=== PATIENT | female | born 1965 | race Caucasian/White ===

== ENCOUNTER 2017-06-13 13:53 | Emergency (ER) | payer SELFPAY ==
[2017-06-13] MEDS ORDERED: Diazepam 5 MG TAB ONE (15:10)
[2017-06-13] MEDS ORDERED: Morphine 4 MG/ML VIAL ONE (15:10)
[2017-06-13] MEDS ORDERED: Dexamethasone 10 MG/ML VIAL ONE (15:10)
[2017-06-13] MEDS ORDERED: Dexamethasone 4 mg/ml Vial ONE (15:11)
[2017-06-13] MEDS ORDERED: Dexamethasone 4 MG TAB ONE (15:12)
--- NOTE | 2017-06-13 16:08 | CT ---
LUMBAR SPINE CT WITHOUT CONTRAST: DATE: 06/13/17. HISTORY: Bowel and bladder incontinence for 3 days, pain. TECHNIQUE: Serial axial CT imaging at 2.5 mm intervals from the lower thoracic spine through the tip of the sacr um without contrast. Coronal and sagittal reformatted imaging obtained. FINDINGS: Evaluation of the nonosseous structures is limited without contrast media. There is a small nodule associated with the adrenal gland on the left measuring in the 9-10 mm range, estimated Hounsfield units of approximately negative 15-20, suggesting adrenal adenoma. There is atherosclerotic calcification of the abdominal aorta. Lumbar vertebral body height and alignment appears within normal limits. T12-L1: There is no osseous cause of significant central canal or neural foraminal stenosis. L1-2: There is disk space narrowing with mild anterior osteophyte formation. There is no osseous ca use of significant central canal or neural foraminal stenosis. L2-3: No osseous cause of significant central canal or neural foraminal stenosis. L3-4: Intervertebral disk height appears normal. No osseous cause of significant central canal or n eural foraminal stenosis. L4-5: Mild bilateral facet hypertrophy and hypertrophy of the ligamentum flavum. No osseous cause o f significant central canal or neural foraminal stenosis. L5-S1: There is bilateral facet hypertrophy, right greater than left. There is associated mild neur al foraminal stenosis on the right on the basis of facet osteophyte encroachment. No osseous ause of significant central canal or left neural foraminal stenosis. No worrisome lytic or blastic bone les ion. No acute osseous abnormality. IMPRESSION: Lumbar spine degenerative change with no fracture/dislocation. No osseous cause of significant centr al canal or neural foraminal stenosis. If symptoms persist, MRI suggested. POS: [facility]
[2017-06-13 16:17] LABS: Anion Gap 16 mmol/L (10-20); BUN (Urea Nitrogen) 16 mg/dL (9.8-20.1); Calc. Creatinine Clearance 0 mL/min (70-130); Calcium 9.7 mg/dL (7.8-10.44); Carbon Dioxide 25 mmol/L (22-29); Chloride 103 mmol/L (98-107); Estimated GFR-MDRD 82; Glucose 75 mg/dL (70-105); Potassium 4.3 mmol/L (3.5-5.1); Sodium 140 mmol/L (136-145)
[2017-06-13] MEDS ORDERED: Ketorolac Tromethamine 60 MG/2 ML VIAL ONE (16:26)
[2017-06-13] MEDS ORDERED: HYDROcodone/Acetaminophen 10/325 mg Tablet ONE (16:26)
== END 2017-06-13 17:09 | disposition home or self-care (01) ==
LOC: MADERS 13:53
DX: M54.5 Low back pain (principal); E03.9 Hypothyroidism, unspecified; I10 Essential (primary) hypertension; F41.9 Anxiety disorder, unspecified; F17.210 Nicotine dependence, cigarettes, uncomplicated; Z79.84 Long term (current) use of oral hypoglycemic drugs; Z79.899 Other long term (current) drug therapy
CPT/HCPCS: 36415; 72131; 72132; 80048; 96372; J1100; J1885; J2270; J8540

== ENCOUNTER 2020-09-14 14:21 | Outpatient (CLI) | payer MEDICARE ==
[~2020-09-14 14:21] MED LIST: Iopamidol 370 76% 100 ML VIAL ONE
--- NOTE | 2020-09-14 16:08 | CT ---
CT neck soft tissues with contrast: 09/14/2020 HISTORY: 55-year-old female "thyroid enlargement, goiter" COMPARISON: None FINDINGS: The lower poles of the right and left lobes of the thyroid gland are enlarged, right greater than lef t, and these encroach upon the mid poles. The upper poles are spared. The enlarged portions have heterogeneous, patchy attenuation/enhancement. A punctate tiny calcification is present at the anteri or portion of the left midpole. If this is moderately enlarged. Right mid and lower pole nodular mass is approximately 3.5 x 3 x 2.5 cm. The left mid and lower pole nodular mass is approximately 2 x 2 0.5 x 2.5 cm. No evidence of invasion of thyroid tumor into adjacent structures, although there is mild lateral dis placement of the bilateral common carotid arteries and internal jugular veins by these large thyroid nodules. No cervical lymphadenopathy. No definitive major pathology identified involving submandibular, parotid, parapharyngeal, retrophary ngeal, carotid, tax analyst, or posterior cervical, spaces. Unremarkable larynx. Nonspecific partial opacification of the vallecula and left lateral aspect of oral pharyngeal cavity. IMPRESSION: Bilateral moderately large thyroid nodules occupying the lower and mid poles, right larger than left.
== END 2020-09-14 14:22 | disposition home or self-care (01) ==
LOC: MADRAD 14:21
PROVIDERS: ATTEND Student in an Organized Health Care Education/Training Program
DX: E04.9 Nontoxic goiter, unspecified (principal); E04.2 Nontoxic multinodular goiter
CPT/HCPCS: 70491; Q9967

== ENCOUNTER 2021-01-17 10:44 | Outpatient (CLI) | payer MEDICARE ==
[2021-01-17 11:12] LABS: ALT (SGPT) 26 U/L (8-55); AST (SGOT) 25 U/L (5-34); Albumin 4.4 g/dL (3.5-5.0); Alkaline Phosphatase 87 U/L (40-110); Anion Gap 18 mmol/L (10-20); BUN (Urea Nitrogen) 36 mg/dL (9.8-20.1); Bilirubin, Total 0.5 mg/dL (0.2-1.2); Calc. Creatinine Clearance 0 mL/min (70-130); Calcium 10.1 mg/dL (7.8-10.44); Carbon Dioxide 22 mmol/L (22-29); Cardiac Risk 3.7 (Less than 4.5); Chloride 107 mmol/L (98-107); Cholesterol 294 mg/dl (< 200 Desired); Globulin 3.2 g/dL (2.4-3.5); Glucose 93 mg/dL (70-105); HDL Cholesterol 80 mg/dL (>60 Neg Risk); LDL Cholesterol, Calculated 194 mg/dL; Potassium 4.5 mmol/L (3.5-5.1); Protein, Total 7.6 g/dL (6.0-8.3); Sodium 142 mmol/L (136-145); Triglycerides 101 mg/dL (Less than 150)
== END 2021-01-17 10:45 | disposition home or self-care (01) ==
LOC: MADLAB 10:44
PROVIDERS: ATTEND Internal Medicine Endocrinology, Diabetes & Metabolism
DX: E03.9 Hypothyroidism, unspecified (principal); E78.5 Hyperlipidemia, unspecified
CPT/HCPCS: 36415; 80053; 80061; 84439; 84443

== ENCOUNTER 2021-02-15 19:08 | Emergency (ER) | payer MEDICARE ==
[~2021-02-15 19:08] MED LIST changes: -Iopamidol 370 76% 100 ML VIAL ONE; +Sodium Chloride 0.9% 1,000 ML BAG ONE
[2021-02-15 20:52] LABS: Bilirubin Negative (Negative); Blood, Urine Negative (Negative); Clarity Clear (Clear); Glucose, Urine (Dipstick) Negative (Negative); Ketone, Urine Negative (Negative); Leukocyte Negative (Negative); Nitrite Negative (Negative); Protein, Urine (Dipstick) Negative (Neg-Trace); Urobilinogen 0.2 mg/dL (Less than 2); pH, Urine 5.5 (5.0-9.0)
[2021-02-15 21:08] LABS: ALT (SGPT) 16 U/L (8-55); AST (SGOT) 16 U/L (5-34); Albumin 4.1 g/dL (3.5-5.0); Alkaline Phosphatase 75 U/L (40-110); Anion Gap 13 mmol/L (10-20); BUN (Urea Nitrogen) 38 mg/dL (9.8-20.1); Bilirubin, Total 0.7 mg/dL (0.2-1.2); Calc. Creatinine Clearance 0 mL/min (70-130); Calcium 9.9 mg/dL (7.8-10.44); Carbon Dioxide 27 mmol/L (22-29); Chloride 101 mmol/L (98-107); Globulin 3.1 g/dL (2.4-3.5); Glucose 102 mg/dL (70-105); Lipase 4 U/L (8-78); Potassium 3.8 mmol/L (3.5-5.1); Protein, Total 7.2 g/dL (6.0-8.3); Sodium 137 mmol/L (136-145)
[2021-02-15 21:20] LABS: Hemoglobin 11.5 g/dL (12.0-16.0); Mean Corpuscular HGB CONC 31.3 g/dL (32.0-36.0); Mean Corpuscular Hemoglobin 31.6 pg (27.0-31.0); Mean Corpuscular Volume 100.9 fL (78.0-98.0); Platelet Count 355 thou/uL (130-400); RBC Distribution Width 12.6 % (11.5-14.5); Red Blood Cell (RBC) Count 3.65 mill/uL (4.20-5.40); White Blood Cell (WBC) Count 20.5 thou/uL (4.8-10.8)
[2021-02-15 21:28] LABS: Lymphocytes 21 % (21-51); Neutrophil 72 % (42-75)
[2021-02-15 21:29] LABS: MDiff Complete? YES; Monocytes 17 % (0-10); Platelet Morphology Comment Appears Adequate; RBC Morphology Normal
[2021-02-15] MEDS ORDERED: Morphine 4 MG/ML VIAL ONE (23:07)
[2021-02-15] MEDS ORDERED: Morphine 2 MG/ML VIAL ONE (23:08)
[2021-02-16 00:52] LABS: SARS-CoV-2 NAA Rapid Test Not Detected (NotDetected)
[2021-02-16] MEDS ORDERED: Cyclobenzaprine 10 MG TAB ONE (01:42)
[2021-02-16] MEDS ORDERED: Sodium Chloride 0.9% 100 ML ONE (01:48)
[2021-02-16] MEDS ORDERED: cefTRIAXone\\ROCEPHIN 2 GM VIAL ONE (01:48)
[2021-02-16] MEDS ORDERED: Azithromycin 500 MG VIAL ONE (01:48)
[2021-02-16] MEDS ORDERED: Sodium Chloride 0.9% 250 ML 250 ML ONE (01:51)
[2021-02-16] MEDS ORDERED: Azithromycin 250 MG TAB ONE (08:34)
[2021-02-16] MEDS ORDERED: Ibuprofen 600 MG TAB ONE (08:39)
== END 2021-02-16 08:55 | disposition home or self-care (01) ==
LOC: MADERS 19:08
DX: J18.9 Pneumonia, unspecified organism (principal); E03.9 Hypothyroidism, unspecified; I10 Essential (primary) hypertension; F17.210 Nicotine dependence, cigarettes, uncomplicated; Z20.822 Contact with and (suspected) exposure to COVID-19
CPT/HCPCS: 0240U; 36415; 71045; 80053; 81003; 83605; 83690; 85025; 87040; 87086; 96365; 96367; 96375; J0456; J0696; J2270; J3490; J7050

== ENCOUNTER 2021-05-18 11:04 | Emergency (ER) | payer MEDICARE | END 2021-05-18 12:20 | disposition home or self-care (01) | LOC: MADERS 11:04 | DX: J06.9 Acute upper respiratory infection, unspecified (principal); E03.9 Hypothyroidism, unspecified; I10 Essential (primary) hypertension; Z79.899 Other long term (current) drug therapy; Z79.891 Long term (current) use of opiate analgesic | CPT/HCPCS: 71046; J7620 ==

== ENCOUNTER 2021-06-08 08:55 | Outpatient (CLI) | payer MEDICARE ==
[2021-06-08 09:38] LABS: Bilirubin Negative (Negative); Blood, Urine Negative (Negative); Clarity Clear (Clear); Glucose, Urine (Dipstick) Negative (Negative); Ketone, Urine Negative (Negative); Leukocyte Negative (Negative); Nitrite Negative (Negative); Protein, Urine (Dipstick) Negative (Neg-Trace); Specific Gravity, Urine 1.015 (1.005-1.030); Urobilinogen 0.2 mg/dL (Less than 2); pH, Urine 5.5 (5.0-9.0)
[2021-06-08 09:54] LABS: Albumin 4.2 g/dL (3.5-5.0); Anion Gap 15 mmol/L (10-20); BUN (Urea Nitrogen) 35 mg/dL (9.8-20.1); Calc. Creatinine Clearance 0 mL/min (70-130); Calcium 9.6 mg/dL (7.8-10.44); Carbon Dioxide 25 mmol/L (22-29); Chloride 100 mmol/L (98-107); Glucose 101 mg/dL (70-105); Magnesium 1.2 mg/dL (1.6-2.6); Phosphorus 3.4 mg/dL (2.3-4.7); Potassium 3.8 mmol/L (3.5-5.1); Sodium 136 mmol/L (136-145); Uric Acid 8.5 mg/dL (2.6-6.0)
[2021-06-08 18:18] LABS: Creatinine, Urine 54.33 mg/dL (47-110); Microalbumin Urine Less than 1.0 mg/dL (0.5-50.0); Protein, Urine Random Quant Less than 10 mg/dL (1-14)
[2021-06-10 16:02] LABS: ANA Symphony (Qualitative) Negative (Negative); ANA Symphony (Quantitative) 0.2 Ratio (< 0.7 Negative); dsDNA IgG Antibody 0.6 IU/mL (<10 Negative)
== END 2021-06-08 08:56 | disposition home or self-care (01) ==
LOC: MADULT 08:55
PROVIDERS: ATTEND Internal Medicine Nephrology
DX: I12.9 Hypertensive chronic kidney disease with stage 1 through stage 4 chronic kidney disease, or unspecified chronic kidney disease (principal); N18.30 Chronic kidney disease, stage 3 unspecified
CPT/HCPCS: 36415; 76770; 80048; 81003; 82040; 82043; 82306; 83735; 83970; 84100; 84156; 84550; 86038; 86225

== ENCOUNTER 2022-01-24 13:36 | Emergency (ER) | payer MEDICARE ==
[2022-01-24 15:45] LABS: #Eosinphils 0.1 thou/uL (0.0-0.7); #Lymphocytes 2.1 thou/uL (1.20-3.40); #Monocytes 0.4 thou/uL (0.11-0.59); #Neutrophils 2.2 thou/uL (1.40-6.50); %Basophils 0.8 % (0.0-1.0); %Eosinophils 1.5 % (0.0-10.0); %Lymphocytes 43.9 % (21.0-51.0); %Neutrophils 45.7 % (42.0-75.0); Hemoglobin 12.4 g/dL (12.0-16.0); Mean Corpuscular HGB CONC 31.1 g/dL (32.0-36.0); Mean Corpuscular Hemoglobin 29.2 pg (27.0-31.0); Mean Corpuscular Volume 94.1 fL (78.0-98.0); Platelet Count 283 thou/uL (130-400); RBC Distribution Width 12.3 % (11.5-14.5); Red Blood Cell (RBC) Count 4.23 mill/uL (4.20-5.40); White Blood Cell (WBC) Count 4.9 thou/uL (4.8-10.8)
[2022-01-24 16:02] LABS: ALT (SGPT) 20 U/L (8-55); AST (SGOT) 23 U/L (5-34); Albumin 4.3 g/dL (3.5-5.0); Alkaline Phosphatase 66 U/L (40-110); Anion Gap 19 mmol/L (10-20); BUN (Urea Nitrogen) 36 mg/dL (9.8-20.1); Bilirubin, Total 0.2 mg/dL (0.2-1.2); Calc. Creatinine Clearance 0 mL/min (70-130); Calcium 9.7 mg/dL (7.8-10.44); Carbon Dioxide 25 mmol/L (22-29); Chloride 101 mmol/L (98-107); Estimated GFR 34; Globulin 3.2 g/dL (2.4-3.5); Glucose 81 mg/dL (70-105); Potassium 4.6 mmol/L (3.5-5.1); Protein, Total 7.5 g/dL (6.0-8.3); Sodium 140 mmol/L (136-145)
== END 2022-01-24 16:15 | disposition home or self-care (01) ==
LOC: MADERS 13:36
DX: J20.9 Acute bronchitis, unspecified (principal); I12.9 Hypertensive chronic kidney disease with stage 1 through stage 4 chronic kidney disease, or unspecified chronic kidney disease; N18.9 Chronic kidney disease, unspecified; E03.9 Hypothyroidism, unspecified; F17.210 Nicotine dependence, cigarettes, uncomplicated
CPT/HCPCS: 71045; 80053; 84484; 85025; 93005; 94760

== ENCOUNTER 2022-10-20 10:40 | Emergency (ER) | payer MEDICARE, OTHER | END 2022-10-20 12:18 | disposition home or self-care (01) | LOC: MADERS 10:40 | DX: S22.31XA Fracture of one rib, right side, initial encounter for closed fracture (principal); E03.9 Hypothyroidism, unspecified; I10 Essential (primary) hypertension; F17.290 Nicotine dependence, other tobacco product, uncomplicated; W19.XXXA Unspecified fall, initial encounter ==

== ENCOUNTER 2023-03-10 03:38 | Emergency (ER) | payer MEDICARE ==
[2023-03-10] MEDS ORDERED: Ondansetron PF 4 MG/2 ML Vial ONE (04:02)
[2023-03-10] MEDS ORDERED: Sodium Chloride 0.9% 1,000 ML ONE ×2 (04:02→07:38)
[2023-03-10] MEDS ORDERED: Morphine 4 MG/ML VIAL ONE ×2 (04:02→05:15)
[2023-03-10 04:16] LABS: #Basophils 0.1 thou/uL (0.0-0.2); #Eosinphils 0.1 thou/uL (0.0-0.7); #Lymphocytes 1.3 thou/uL (1.20-3.40); #Monocytes 0.5 thou/uL (0.11-0.59); #Neutrophils 9.2 thou/uL (1.40-6.50); %Basophils 0.7 % (0.0-1.0); %Eosinophils 1.2 % (0.0-10.0); %Lymphocytes 11.8 % (21.0-51.0); %Monocytes 4.2 % (0.0-10.0); %Neutrophils 82.1 % (42.0-75.0); Hemoglobin 14.1 g/dL (12.0-16.0); Mean Corpuscular HGB CONC 32.8 g/dL (32.0-36.0); Mean Corpuscular Hemoglobin 31.5 pg (27.0-31.0); Mean Platelet Volume 8.6 fL (7.4-10.4); Platelet Count 402 10x3/uL (130-400); Red Blood Cell (RBC) Count 4.48 mill/uL (4.20-5.40); White Blood Cell (WBC) Count 11.2 10x3/uL (4.8-10.8)
[2023-03-10 04:30] LABS: Bilirubin Negative (Negative); Blood, Urine Negative (Negative); Glucose, Urine (Dipstick) Negative (Negative); Ketone, Urine Negative (Negative); Leukocyte Small (Negative); Nitrite Negative (Negative); Protein, Urine (Dipstick) Negative (Neg-Trace); Specific Gravity, Urine 1.025 (1.005-1.030); Urobilinogen 0.2 mg/dL (Less than 2)
[2023-03-10 04:33] LABS: Bacteria/HPF 1+ HPF (None Seen); CAUTI Indications for Culture Pelvic or flank pain; Clarity Hazy (Clear); RBC/HPF 0-3 HPF (0-3); Squamous Epithelial 21-50 HPF (0-3)
[2023-03-10 04:34] LABS: Urine Culture Reflex No No
[2023-03-10 04:37] LABS: ALT (SGPT) 11 U/L (8-55); AST (SGOT) 15 U/L (5-34); Albumin 4.3 g/dL (3.5-5.0); Alkaline Phosphatase 64 U/L (40-110); Anion Gap 15 mmol/L (10-20); BUN (Urea Nitrogen) 28 mg/dL (9.8-20.1); Bilirubin, Total 0.4 mg/dL (0.2-1.2); Calc. Creatinine Clearance 0 mL/min (70-130); Calcium 9.4 mg/dL (7.8-10.44); Carbon Dioxide 22 mmol/L (22-29); Chloride 107 mmol/L (98-107); Estimated GFR 70; Globulin 3.3 g/dL (2.4-3.5); Glucose 115 mg/dL (70-105); Lipase 10 U/L (8-78); Potassium 4.3 mmol/L (3.5-5.1); Protein, Total 7.6 g/dL (6.0-8.3); Sodium 140 mmol/L (136-145)
[2023-03-10] MEDS ORDERED: Iopamidol 370 76% 100 ML VIAL ONE (10:57)
== END 2023-03-10 08:40 | disposition short-term general hospital (02) ==
LOC: MADERS 03:38
DX: K56.609 Unspecified intestinal obstruction, unspecified as to partial versus complete obstruction (principal); E03.9 Hypothyroidism, unspecified; I12.9 Hypertensive chronic kidney disease with stage 1 through stage 4 chronic kidney disease, or unspecified chronic kidney disease; N18.9 Chronic kidney disease, unspecified; Z79.899 Other long term (current) drug therapy; Z87.891 Personal history of nicotine dependence
CPT/HCPCS: 36415; 74177; 80053; 81001; 83690; 85025; 93005; 96361; 96374; 96375; 96376; J2270; J2405; J7050; Q9967

== ENCOUNTER 2024-06-08 07:14 | Emergency (ER) | payer MEDICARE ==
[2024-06-08] MEDS ORDERED: Ipratropium Bromide 2.5 ml Neb ONE (07:44)
[2024-06-08] MEDS ORDERED: Albuterol 2.5 MG (0.5 mL) NEB ONE (07:44)
[2024-06-08] MEDS ORDERED: cefTRIAXone (ROCEPHIN) 2 GM VIAL ONE (08:01)
[2024-06-08] MEDS ORDERED: Azithromycin 500 MG VIAL ONE (08:01)
[2024-06-08 08:12] LABS: #Basophils 0.1 thou/uL (0.0-0.2); #Monocytes 0.3 thou/uL (0.11-0.59); %Basophils 0.5 % (0.0-1.0); %Eosinophils 0.2 % (0.0-10.0); %Lymphocytes 6.4 % (21.0-51.0); %Monocytes 2.2 % (0.0-10.0); %Neutrophils 90.7 % (42.0-75.0); Hematocrit 36.7 % (36.0-47.0); Hemoglobin 11.7 g/dL (12.0-16.0); Mean Corpuscular HGB CONC 31.9 g/dL (32.0-36.0); Mean Corpuscular Hemoglobin 30.7 pg (27.0-31.0); Mean Corpuscular Volume 96.3 fl (78.0-98.0); Mean Platelet Volume 8.3 fL (7.4-10.4); Platelet Count 312 10x3/uL (130-400); RBC Distribution Width 12.2 % (11.5-14.5); Red Blood Cell (RBC) Count 3.82 mill/uL (4.20-5.40); White Blood Cell (WBC) Count 15.4 10x3/uL (4.8-10.8)
[2024-06-08 08:22] LABS: PTT 26.7 sec (22.9-36.1); Prothrombin Time 12.6 sec (12.0-14.7)
[2024-06-08 08:32] LABS: ALT (SGPT) 9 U/L (8-55); AST (SGOT) 13 U/L (5-34); Albumin 3.2 g/dL (3.4-4.8); Alkaline Phosphatase 71 U/L (40-110); Anion Gap 18 mmol/L (10-20); BUN (Urea Nitrogen) 39 mg/dL (9.8-20.1); Bilirubin, Total 0.2 mg/dL (0.2-1.2); Calc. Creatinine Clearance 0 mL/min (70-130); Calcium 8.2 mg/dL (7.8-10.44); Carbon Dioxide 22 mmol/L (23-31); Chloride 106 mmol/L (98-107); Estimated GFR 36; Globulin 3.1 g/dL (2.4-3.5); Glucose 93 mg/dL (80-115); Potassium 3.7 mmol/L (3.5-5.1); Protein, Total 6.3 g/dL (5.8-8.1); Sodium 142 mmol/L (136-145)
== END 2024-06-08 10:10 | disposition short-term general hospital (02) ==
LOC: MADERS 07:14
DX: J18.1 Lobar pneumonia, unspecified organism (principal); J96.01 Acute respiratory failure with hypoxia; A41.9 Sepsis, unspecified organism; I12.9 Hypertensive chronic kidney disease with stage 1 through stage 4 chronic kidney disease, or unspecified chronic kidney disease; N18.30 Chronic kidney disease, stage 3 unspecified; E03.9 Hypothyroidism, unspecified; F17.290 Nicotine dependence, other tobacco product, uncomplicated; Z79.899 Other long term (current) drug therapy
CPT/HCPCS: 71046; 80053; 83605; 85025; 85610; 85730; 87040; 93005; 94760; 96365; 96367; 99285; J0456; J0696; J7644; 36415; J7611

== ENCOUNTER 2025-04-16 12:02 | Outpatient (CLI) | payer MEDICARE ==
[2025-04-16 12:48] LABS: Albumin 4.0 g/dL (3.1-4.5); Anion Gap 18 mmol/L (10-20); BUN (Urea Nitrogen) 54 mg/dL (9.8-20.1); Calc. Creatinine Clearance 0 mL/min (70-130); Calcium 9.6 mg/dL (7.8-10.44); Carbon Dioxide 23 mmol/L (23-31); Chloride 102 mmol/L (98-107); Glucose 113 mg/dL (80-115); Magnesium 1.6 mg/dL (1.6-2.6); Potassium 4.3 mmol/L (3.5-5.1); Sodium 139 mmol/L (136-145)
[2025-04-16 12:51] LABS: #Basophils 0.1 thou/uL (0.0-0.2); #Eosinophils 0.3 thou/uL (0.0-0.7); #Lymphocytes 1.7 thou/uL (1.20-3.40); #Monocytes 0.6 thou/uL (0.11-0.59); #Neutrophils 6.7 thou/uL (1.40-6.50); %Basophils 1.2 % (0.0-1.0); %Eosinophils 2.8 % (0.0-10.0); %Lymphocytes 18.2 % (21.0-51.0); %Monocytes 6.0 % (0.0-10.0); %Neutrophils 71.7 % (42.0-75.0); Glucose, Urine (Dipstick) 250 mg/dL (Negative); Hematocrit 41.8 % (36.0-47.0); Hemoglobin 13.0 g/dL (12.0-16.0); Leukocyte Small (Negative); Mean Corpuscular Hemoglobin 29.5 pg (27.0-31.0); Mean Corpuscular Volume 94.5 fl (78.0-98.0); Platelet Count 311 10x3/uL (130-400); Protein, Urine (Dipstick) Trace mg/dL (Neg-Trace); Red Blood Cell (RBC) Count 4.42 mill/uL (4.20-5.40); Specific Gravity, Urine 1.020 (1.005-1.030); White Blood Cell (WBC) Count 9.3 10x3/uL (4.8-10.8)
[2025-04-16 17:04] LABS: Protein, Urine Random Quant 18.0 mg/dL (1-14)
== END 2025-04-16 12:03 | disposition home or self-care (01) ==
LOC: MADLAB 12:02
PROVIDERS: ATTEND Internal Medicine Nephrology
DX: I12.9 Hypertensive chronic kidney disease with stage 1 through stage 4 chronic kidney disease, or unspecified chronic kidney disease (principal); N18.30 Chronic kidney disease, stage 3 unspecified; R60.0 Localized edema; E87.5 Hyperkalemia
CPT/HCPCS: 36415; 80048; 81003; 82040; 82570; 83735; 83970; 84100; 84156; 85025

== ENCOUNTER 2025-04-21 12:14 | Outpatient (CLI) | payer MEDICARE ==
[2025-04-21 12:42] LABS: Hematocrit 40.6 % (36.0-47.0); Hemoglobin 13.0 g/dL (12.0-16.0)
[2025-04-21 12:47] LABS: ALT (SGPT) 12 U/L (Less than 34); AST (SGOT) 21 U/L (11-34); Albumin 3.8 g/dL (3.1-4.5); Alkaline Phosphatase 83 U/L (40-110); Anion Gap 17 mmol/L (10-20); BUN (Urea Nitrogen) 36 mg/dL (9.8-20.1); Bilirubin, Total 0.4 mg/dL (0.3-1.2); Calc. Creatinine Clearance 0 mL/min (70-130); Calcium 9.1 mg/dL (7.8-10.44); Carbon Dioxide 25 mmol/L (23-31); Cardiac Risk 3.7 (Less than 4.5); Chloride 103 mmol/L (98-107); Cholesterol 219 mg/dl (< 200 Desired); Globulin 3.6 g/dL (2.4-3.5); Glucose 114 mg/dL (80-115); HDL Cholesterol 60 mg/dL (>60 Neg Risk); LDL Cholesterol, Calculated 125 mg/dL; Potassium 4.1 mmol/L (3.5-5.1); Sodium 141 mmol/L (136-145); Triglycerides 168 mg/dL (Less than 150)
[2025-04-21 16:30] LABS: Protein, Urine Random Quant Less than 10 mg/dL (1-14)
== END 2025-04-21 12:15 | disposition home or self-care (01) ==
LOC: MADLAB 12:14
PROVIDERS: ATTEND Internal Medicine Endocrinology, Diabetes & Metabolism
DX: E78.5 Hyperlipidemia, unspecified (principal); E03.9 Hypothyroidism, unspecified
CPT/HCPCS: 36415; 80053; 80061; 82570; 84156; 84439; 84443; 85014; 85018